=== PATIENT | female | born 1960 | race Caucasian/White ===

== ENCOUNTER 2019-04-26 10:49 | Inpatient (IN) | payer OTHER ==
[~2019-04-26] VITALS: Ht 160 cm; Wt 71.7 kg
[2019-05-01] MEDS ORDERED: LEVO-T50 MCG PO (10:50)
[2019-05-01] MEDS ORDERED: LOPRESS PO (10:50)
[2019-05-01] MEDS ORDERED: LIPITOR20 MG PO (10:51)
[2019-05-01] MEDS ORDERED: SYNTHROID75 MCG PO (10:51)
[2019-05-01] MEDS ORDERED: FIORINAL 50-321 EACH PO (10:52)
[2019-05-01] MEDS ORDERED: HORIZANT600 MG PO (10:52)
[2019-05-01] MEDS ORDERED: DICY20TA PO (10:53)
[2019-05-01] MEDS ORDERED: ZANTAC150 MG PO (10:53)
[2019-05-01] MEDS ORDERED: CLONAZEPAM0.5 MG PO (10:54)
[2019-05-01] MEDS ORDERED: ZESTRIL30 MG PO (10:54)
[2019-05-01] MEDS ORDERED: PROZAC20 MG PO (10:55)
[2019-05-01] MEDS ORDERED: TRAZODONE HCL150 MG PO (10:55)
[2019-05-01] MEDS ORDERED: PROAIR RESPICL90 MCG IH (10:55)
[2019-05-01] MEDS ORDERED: FLAGYL500MG PO (10:56)
[2019-05-01] MEDS ORDERED: CYCLOBENZAPRINE PO (10:57)
[2019-05-01] MEDS ORDERED: GLYCOPYRROLATE PO (10:58)
[2019-05-04] MEDS ORDERED: E-400400 UNIT (08:25)
[2019-05-04] MEDS ORDERED: VITAMIN D3125 MC1 (08:25)
[2019-05-04] MEDS ORDERED: VITAMIN B-122000 MCG (08:25)
[2019-05-04] MEDS ORDERED: TOPROL XL50 MG PO (08:27)
[2019-05-04] MEDS ORDERED: RANITIDINE HCL300 MG PO (08:29)
[2019-05-04] MEDS ORDERED: CYCLOBENZAPRINE5 MG PO (08:33)
[2019-05-04] MEDS ORDERED: GLYCOPYRROLATE2 MG PO (08:34)
[2019-05-04] MEDS ORDERED: ALLERGY RELIEF10 M4 PO (08:38)
[2019-05-07] MEDS ORDERED: OMEPRAZOLE MAGN20 MG PO (11:34)
[2019-05-07] MEDS ORDERED: INTESTINEX680 M1 PO (11:34)
[2019-05-07] MEDS ORDERED: PERCOCET 5-3251 EACH PO (11:34)
== END 2019-05-07 12:56 | disposition home or self-care (01) | DRG 330 ==
LOC: O/R 05-04 05:10 → SURG 05-04 05:10 → SURH 05-06 12:29
PROVIDERS: ADMIT Surgery
PROC: 0DBN4ZZ Excision of Sigmoid Colon, Percutaneous Endoscopic Approach (ICD-10-PCS; 2019-05-04)
PROC: 0DNN4ZZ Release Sigmoid Colon, Percutaneous Endoscopic Approach (ICD-10-PCS; 2019-05-04)
PROC: 0DN84ZZ Release Small Intestine, Percutaneous Endoscopic Approach (ICD-10-PCS; 2019-05-04)
PROC: 0DJD8ZZ Inspection of Lower Intestinal Tract, Via Natural or Artificial Opening Endoscopic (ICD-10-PCS; 2019-05-04)
PROC: 0DBP4ZZ Excision of Rectum, Percutaneous Endoscopic Approach (ICD-10-PCS; principal; 2019-05-04 11:30)
DX: K57.32 Diverticulitis of large intestine without perforation or abscess without bleeding (principal); K56.51 Intestinal adhesions [bands], with partial obstruction

== ENCOUNTER 2019-06-28 10:55 | Outpatient (CLI) | payer OTHER ==
[~2019-06-28 10:55] MED LIST: ALLERGY RELIEF10 M4 PO; CLONAZEPAM0.5 MG PO; CYCLOBENZAPRINE PO; CYCLOBENZAPRINE5 MG PO; DICY20TA PO; E-400400 UNIT; FIORINAL 50-321 EACH PO; FLAGYL500MG PO; GLYCOPYRROLATE PO; GLYCOPYRROLATE2 MG PO; HORIZANT600 MG PO; INTESTINEX680 M1 PO; LEVO-T50 MCG PO; LIPITOR20 MG PO; LOPRESS PO; OMEPRAZOLE MAGN20 MG PO; PERCOCET 5-3251 EACH PO; PROAIR RESPICL90 MCG IH; PROZAC20 MG PO; RANITIDINE HCL300 MG PO; SYNTHROID75 MCG PO; TOPROL XL50 MG PO; TRAZODONE HCL150 MG PO; VITAMIN B-122000 MCG; VITAMIN D3125 MC1; ZANTAC150 MG PO; ZESTRIL30 MG PO
== END 2019-06-28 11:17 | disposition home or self-care (01) ==
LOC: NUCLEAR 10:55
DX: R55 Syncope and collapse (principal); R19.4 Change in bowel habit; R10.32 Left lower quadrant pain; R19.5 Other fecal abnormalities; K57.32 Diverticulitis of large intestine without perforation or abscess without bleeding

== ENCOUNTER 2019-07-21 14:01 | Outpatient (CLI) | payer OTHER | END 2019-07-21 14:25 | disposition home or self-care (01) | LOC: LAB 14:01 | DX: N20.0 Calculus of kidney (principal) ==

== ENCOUNTER 2019-07-26 10:33 | Outpatient (CLI) | payer OTHER | END 2019-07-26 10:38 | disposition home or self-care (01) | LOC: TOM 10:33 | DX: R19.4 Change in bowel habit (principal); R10.32 Left lower quadrant pain; R19.5 Other fecal abnormalities; K57.32 Diverticulitis of large intestine without perforation or abscess without bleeding | CPT/HCPCS: 74177; Q9965 ==

== ENCOUNTER 2019-08-09 08:22 | Emergency (ER) | payer OTHER ==
[~2019-08-09] VITALS: Ht 160 cm; Wt 68.0 kg
[2019-08-09] MEDS ORDERED: RESTORIL30 M1 (08:57)
[2019-08-09] MEDS ORDERED: NEURONTIN600 M1 (08:58)
[2019-08-09] MEDS ORDERED: CLONAZEPAM1 MG (08:58)
[2019-08-09] MEDS ORDERED: [UNRECOGNIZED DRUG - OTHER] PO (13:53)
[2019-08-09] MEDS ORDERED: KETO10TA2 PO (13:53)
== END 2019-08-09 14:01 | disposition home or self-care (01) ==
LOC: ER 08:22
DX: M54.5 Low back pain (principal); R10.84 Generalized abdominal pain

== ENCOUNTER 2020-07-16 13:06 | Day surgery (SDC) | payer OTHER ==
[~2020-07-16 13:06] MED LIST changes: +CLONAZEPAM1 MG; +KETO10TA2 PO; +NEURONTIN600 M1; +RESTORIL30 M1; +[UNRECOGNIZED DRUG - OTHER] PO
== END 2020-07-16 16:50 | disposition home or self-care (01) ==
LOC: AMB-ENDOS 13:06
PROVIDERS: ATTEND Surgery
DX: K57.32 Diverticulitis of large intestine without perforation or abscess without bleeding (principal); K64.8 Other hemorrhoids; Z20.822 Contact with and (suspected) exposure to COVID-19